=== PATIENT | male | born 1955 | race Caucasian/White ===

== ENCOUNTER 2025-03-14 11:56 | Emergency (ER) | payer MEDICARE, BC, SELFPAY ==
[2025-03-14 12:00] VITALS: BP 122/83
[2025-03-14 12:10] VITALS: BMI 33.3
--- NOTE | 2025-03-14 12:12 | ED.GENMED ---
History of Present Illness
General
Chief Complaint: Breathing Problem
Source: patient
Time Seen by Provider: 03/14/25 12:00
History of Present Illness
History of Present Illness:
The patient is a 69-year-old male presenting with symptoms suggestive of an anxiety attack. The patient describes feeling lightheaded, having difficulty catching his breath, experiencing tingling sensations throughout his body, and a very dry mouth.
The symptoms began while he was driving, not during physical exertion, and were severe enough to raise concerns about a possible heart attack, especially considering his familys medical history. The symptoms started earlier while he was involved in
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 The patient reports prior similar feelings but has never had them medically evaluated. He notes that his symptoms have improved with rest and reassurance after
observing normal readings on initial tests upon arrival. He experiences a tightness in the chest, described as a weight pressing on him, rated 4 out of 10 in severity. The patient has a history of gout and takes medications for it. He occasionally
experiences numbness and nausea, which improved after consuming hydration fluids like Gatorade, suspecting possible dehydration.
Past History
Past History
ED Past Medical History: Hypercholesterolemia and Other (gout- Steel plate insertion in the left arm - Shoulder reconstruction - Lower back surgery - Hand surgeries)
ED Past Surgical History: Orthopedic
Phy Exam
Physical Exam
Physical Exam:
General: Awake, Alert, Oriented X3. No acute distress.
Vitals: unremarkable
Head: Atraumatic
Eyes: Pupils equal, EOMI
Throat: Airway intact, no exudates
Neck: Trachea midline
Lungs: Clear and equal b/l
Heart: Regular rate, no murmurs
Abd: Soft, Nontender, No pulsatile mass
Back: No CVA tenderness to percussion
Neuro: Nonfocal
Skin: Warm, dry, no rash
Extremities: pulses equal b/l, no edema
Scores
Heart Failure Risk
Heart Failure Risk Score: Not Applicable
Course
Orders/Labs/Results
Orders:
Orders
03/14/25 12:02
EKG [Electrocardiogram (*1)] Urgent
Reason for Study: Shortness of Breath
EKG- Treatment ONCE
03/14/25 12:09
CMP [Comprehensive Metabolic Panel] Urgent
Complete Blood Count/With Diff Urgent
Troponin I Urgent
03/14/25 12:16
CR Chest - 2 Views Urgent
Comment:
Reason For Exam: chest pain
03/14/25 12:22
0.9% Sodium Chloride 500 ml [Nss] 500 ml IV BOLUS
Abnormal Lab Results
03/14/25
12:09
Absolute Lymphs (auto) 1.0 L 10^3/uL
(1.2-3.4)
Neutrophils % 76.6 H %
(42.2-75.2)
Lymphocytes % 16.8 L %
(20.5-51.1)
Chloride 111 H mmol/L
(98-107)
Carbon Dioxide 16 L mmol/L
(22-30)
Glucose 171 H mg/dl
(70-99)
03/14/25 12:09
03/14/25 12:09
Vital Signs
Initial and Last Documented VS:
Initial Vital Signs
Pulse Resp
64 19
03/14/25 11:59 03/14/25 11:59
Last Documented Vital Signs
Temp Pulse Resp BP Pulse Ox
98.0 F 52 16 110/72 100
03/14/25 14:13 03/14/25 14:13 03/14/25 14:13 03/14/25 14:13 03/14/25 14:13
MDM/Problems Addressed
Differential Diagnosis Includes:
The Differential Diagnosis includes, in no particular order and is not limited to:
1. Acute anxiety attack
2. Myocardial infarction
4. Panic disorder
5. Dehydration
6. Gastroesophageal reflux disease
7. Atrial fibrillation
8. Costochondritis
9. Pericarditis
10. Hyperventilation syndrome
MDM/Problems Addressed:
Patient presents with chest pain that started while he was driving. Chest pain associate with hyperventilation, tingling in his hands. Symptoms have resolved. Symptoms began about 9 AM. By the time he had a troponin here I would expect it to
have been elevated should this be anginal chest pain. Overall presentation seems consistent with anxiety attack particularly given the amount of stress he describes in his life.
*Radiology
Radiology exam reviewed: radiology read reviewed
*Pulse Oximetry
Patient hypoxic: no
*EKG
Interpreted by ED Provider?: Yes
Interpretation: normal
Rate: normal
Rhythm: sinus
[place]: normal axis
Interval: normal interval
QRS Pattern: normal QRS
Ischemia: no ischemia
*Dice Table Person Interpretation
Rate: normal
Interpretation: normal
Rhythm: sinus
*Critical Care Note
Total Time (30-74mins, 75-104mins- exclusive of procedures): Not Applicable
ED Attending Note
-
Portions of this chart may have been created with voice recognition software.� Occasional wrong word or��sound alike� substitutions may have occurred due to the inherent limitations of voice recognition software.
Discharge Plan
Departure
Patient Disposition: Home (Routine Discharge)
Date of Disposition: 03/14/25
Time of Disposition: 13:24
Patient with high blood pressure during this ER visit?: No
Condition: Good
Discharge Problem:
Chest pain, Anxiety
Instructions: Anxiety in adults - ED discharge instructions, Chest Pain PCP Follow Up
Referrals:
Shayan Wallace MD [Family Provider, Family Practice]
Interventions
Interventions:
*Risk Screen - Suicide Last Done: 03/14/25 12:00
*General Assessment Last Done: 03/14/25 12:00
*Neglect/Abuse Screening Last Done: 03/14/25 12:00
*ED- Fall Risk Assessment Last Done: 03/14/25 12:00
*ED COVID-19 Vaccine History Last Done: 03/14/25 12:00
*Nursing Disposition Last Done: 03/14/25 14:13
ED- Cardiac Assessment Last Done: 03/14/25 12:10
ED- Pulmonary Assessment Last Done: 03/14/25 12:10
Discharge Date and Time
Discharge Date/Time: 03/14/25 13:55
Print Language: KAZAKH
[2025-03-14 12:22] LABS: % Basophils 0.3 % (0-2); % Eosinophils 0.7 % (0-6); % Immature Granulocytes 0.3 % (0-0.5); % Lymphocytes 16.8 % (20.5-51.1); % Monocytes 5.3 % (1.7-9.3); % Neutrophils 76.6 % (42.2-75.2); Absolute Monocytes 0.3 10^3/uL (0.1-0.6); Absolute Neutrophils 4.5 10^3/uL (1.4-6.5); Hematocrit 41.4 % (39.0-52.0); Hemoglobin 14.2 g/dL (13.0-18.0); Mean Corp Hgb Conc. 34.3 g/dL (33.0-37.0); Mean Corpuscular Volume 87.5 fL (80.0-94.0); Nucleated Red Blood Cells % 0 % (-); Platelet Count 219 10^3/uL (130-400); Red Blood Cell Count 4.73 10^6/uL (4.70-6.10); Red Cell Dist. Width 13.2 % (11.5-14.5); White Blood Cell Count 5.8 10^3/uL (4.8-10.8)
[2025-03-14] MEDS: NSS 500 IV (12:22)
[2025-03-14 12:49] LABS: AST (SGOT) 29 U/L (17-59); Albumin 4.5 g/dl (3.5-5.0); Alkaline Phosphatase 53 U/L (38-126); Blood Urea Nitrogen 15 mg/dl (9-20); Calcium 9.5 mg/dl (8.4-10.2); Carbon Dioxide 16 mmol/L (22-30); Chloride 111 mmol/L (98-107); Estimated Creatinine Clearance 100 ml/min; Glucose 171 mg/dl (70-99); Potassium 3.7 mmol/L (3.5-5.1); Sodium 140 mmol/L (135-145); Total Bilirubin 0.6 mg/dl (0.2-1.3); Total Protein 6.7 g/dl (6.3-8.2); eGFR > 60.00
[2025-03-14 12:53] LABS: Troponin I < 0.012 ng/ml
[2025-03-14 12:58] LABS: ALT (SGPT) 33 U/L (0-50)
[2025-03-14 13:06] VITALS: BP 110/72
--- NOTE | 2025-03-14 13:55 | EDRN ---
Reviewed discharge instructions with the patient. Verbalized understanding. Ambulated with steady gait to the lobby to wait for ride home.
[2025-03-14 14:13] VITALS: BP 110/72
== END 2025-03-14 13:55 | disposition home or self-care (01) ==
LOC: EMR 11:56
PROVIDERS: EMERGENCY PHYSICIAN Emergency Medicine; FAMILY PHYSICIAN Family Medicine
DX: R07.89 Other chest pain (principal); F41.9 Anxiety disorder, unspecified; E78.00 Pure hypercholesterolemia, unspecified
CPT/HCPCS: 99285; 71046; 80053; 84484; 85025; 93005